=== PATIENT | male | born 1995 | race African-American/Black ===

== ENCOUNTER 2018-01-28 17:03 | Emergency (ER) | payer OTHER ==
[~2018-01-28] VITALS: Ht 177.8 cm; Wt 76.3 kg
[2018-01-28 19:57] LABS: SOURCE URINE
[2018-01-28] MEDS ORDERED: NAPROSYN500 MG PO (20:49)
[2018-01-28 21:10] VITALS: BP 138/79
[2018-01-30 12:41] LABS: CHLAMYDIA TRACHOMATIS NEGATIVE; NEISSERIA GONORRHOEAE NEGATIVE
== END 2018-01-28 21:18 | disposition home or self-care (01) ==
LOC: EME 17:03 → TRA 17:03
PROVIDERS: Physician Assistant
PROC: 0HQ0XZZ Repair Scalp Skin, External Approach (ICD-10-PCS; principal; 2018-01-28)
DX: S01.01XA Laceration without foreign body of scalp, initial encounter (principal); S00.83XA Contusion of other part of head, initial encounter; R41.0 Disorientation, unspecified; W19.XXXA Unspecified fall, initial encounter; S81.011D Laceration without foreign body, right knee, subsequent encounter; X58.XXXD Exposure to other specified factors, subsequent encounter; Z48.02 Encounter for removal of sutures; Z11.3 Encounter for screening for infections with a predominantly sexual mode of transmission
CPT/HCPCS: 70450; 70486; 73564; 87491; 87591; 99281; 99284